=== PATIENT | male | born 1955 | race Caucasian/White ===

== ENCOUNTER 2025-09-29 06:55 | Observation (INO) ==
--- NOTE | 2025-08-25 08:38 | PAT Medication Instructions ---
Medication Instructions Date of Service August 25, 2025 Home Medications atorvastatin 10 mg tablet 10 mg PO QAM Take morning of surgery With a small sip of water, OTHERWISE NOTHING TO EAT OR DRINK AFTER MIDNIGHT: atorvastatin 10 mg tablet 10 mg PO QAM Other Notes If you have any questions please call us at [phone] or [phone] or [phone] or [phone]
--- NOTE | 2025-09-03 09:18 | Anesthesiology Consultation ---
Date of Service September 03, 2025 Assessment & Plan (1) Encounter for pre-operative examination: - awaiting surgeon ordered PCP clearance with Dr. Forte 09/06; if cleared by PCP, patient is acceptable to proceed. - Outpatient joint assessment: Patient is currently scheduled for inpatient pathway. If re-evaluated and patient/surgeon requests outpatient pathway, patient is acceptable candidate for outpatient joint program from anesthesia standpoint pending surgeon's office assessment of pt motivation/support/completion of same day joint program preop requirements. Chart Review Chart Review: Patient seen in Pre Admission Testing Teaching & Discussion Pre-Anesthesia Teaching/Discussion Notes: Instructed NPO after midnight before surgery, except medications with 15 cc of water. Medication instructions provided according to the PAT guidelines. History Surgery Operation Date: 09/29/25 07:00 Proposed Procedures p Left Total Knee Arthroplasty - Micheal Cardenas MD Height/Weight Height: 5 ft 5 in Weight: 79.6 kg Allergies Allergy/AdvReac Type Severity Reaction Status Date / Time Sulfa (Sulfonamide Allergy Hives Verified 08/25/25 07:32 Antibiotics) sulfamethoxazole Allergy Hives Verified 08/25/25 07:32 Medications Home Medications Medication Instructions Recorded Confirmed Last Taken atorvastatin 10 mg tablet 10 mg PO QAM 08/25/25 08/25/25 Unknown Past Medical History Medical History (Updated 09/03/25 @ 09:18 by Millie Ramsey PA-C) History of COVID-19 (~2022) 2022, resolved History of migraine "years ago" HLD (hyperlipidemia) Patient denies h/o stroke, seizures, heart attack, heart failure, DM, HTN, blood clots/DVTs or blood transfusions. Exercise / Class Metabolic Activity II 4-5 Yardwork/Stairs/Walk up hill (denies chest discomfort or shortness of breath walking up one flight of stairs) Past Surgical History Surgical History Hx of appendectomy Hx of colonoscopy Hx of left knee surgery in college Hx of right knee surgery in college Hx of shoulder surgery rt/lt Hx of wisdom tooth extraction Nausea after anesthesia only after appendectomy Past Anesthesia History No Hx of Anesthesia Complications and No Family Hx of Anesthesia Complications History of PONV No Hx of Motion Sickness and History of PONV (with appendectomy) Social History Smoking Status: Never smoker Do You Dip or Chew Tobacco: No Hx Alcohol Use: Yes Alcohol type: hard liquor alcohol intake frequency: 0-2 drinks per day Hx Substance Use: No substance use type: does not use Review of Systems Snoring, denies witnessed apneas or sleep study. Patient denies chest pain, shortness of breath, dyspnea on exertion, reflux, fever, chills, cough, wheezing, or palpitations. Physical Exam Vital Signs Vitals BP 134/87 P 64 TEMP 98 SP02 97% on RA RESP 18 Physical Patient resting comfortably in chair in no acute distress, alert and oriented, responding appropriately throughout visit Full cervical extension range of motion without pain TMD 3.5 finger breadths Mallampati Score 3 Dentition: intact, denies chipped or loose teeth, caps/crowns, implants or bridges Lungs: normal respiratory effort. Good air movement, clear throughout to auscultation, no adventitious breath sounds Cardiac: regular rate and rhythm, no murmurs noted Carotid arteries: negative bruit bilat Lab Results Anesthesia Preop Results Results Anesthesia Widget: WBC 5.34 K/ul (4.8-10.8) 09/03/25 Hgb 14.5 g/dl (14.0-18.0) 09/03/25 Hct 43.9 % (42.0-52.0) 09/03/25 Plt 272 K/uL (130-400) 09/03/25 Na 140 mmol/L (136-145) 09/03/25 K 4.3 mmol/L (3.5-5.1) 09/03/25 Cl 109 mmol/L (98-107) H 09/03/25 CO2 25 mmol/L (21-32) 09/03/25 BUN 21 mg/dl (6-23) 09/03/25 Creat 1.11 mg/dl (0.6-1.4) 09/03/25 Glucose Level 101 mg/dl (70-99(Fasting)) H 09/03/25 PT 10.2 Seconds (9.0-12.0) 09/03/25 PTT 28 Seconds (21-31) 09/03/25 INR 1.0 (0.9-1.1) 09/03/25 Blood Type AB Positive 09/03/25 Antibody Screen NEGATIVE 09/03/25 Testing Electrocardiogram Date: 09/03/25 Sinus bradycardia, rate 55 bpm Chest X-Ray Date: 09/03/25 No acute findings.
--- NOTE | 2025-09-29 05:24 | History & Physical Bridge Note ---
Date of Service September 29, 2025 History & Physical Bridge Note I have examined the patient, reviewed the History & Physical and in the interval since the performance of the History & Physical I have noted the following changes of clinical significance: consent and site verified/reviewed risks of [id number] clots.no changes noted
[~2025-09-29 06:55] MED LIST: BUPIVACAINE 0.25% PF 30 ML VIAL ONE; BUPIVACAINE 0.5 % 5 MG/1 ML PF 10ML VIAL ONE; DEXAMETHASONE SOD INJ 4 MG/ML VIAL ONE
[2025-09-29] MEDS ORDERED: ATROPINE SULFATE 0.1 MG/ML 10ML SYR IV PRN (07:26)
[2025-09-29] MEDS ORDERED: ONDANSETRON INJ 2 MG/ML 2 ML VIAL IV PRN ×2 (07:26→12:22)
[2025-09-29] MEDS ORDERED: PROMETHAZINE HCL 6.25 MG in SODIUM CHLORIDE 0.9% 50 ML IV PRN (07:26)
[2025-09-29] MEDS: LR 60ML/HR IV SCH (07:34)
[2025-09-29] MEDS: LR 500ML BOLUS, THEN 15ML/HR IV SCH (07:52)
[2025-09-29] MEDS ORDERED: MIDAZOLAM HCL 1 MG/ML 2ML VIAL ONE ×2 (08:02→08:16)
[2025-09-29] MEDS: TRANEXAMIC ACID 1,000 MG **IV Pre-op IV SCH (09:13)
[2025-09-29] MEDS: ORTHO JOINT ANESTHETIC ONE (09:58)
[2025-09-29] MEDS: ROPIV 0.5% 246mg, Ketorolac 30mg, EPINEPHrine 0.5mg in NSS INFIL SCH (09:58)
[2025-09-29] MEDS ORDERED: ePHEDrine sulfate 50 MG/5 ML SYR ONE (10:43)
[2025-09-29] MEDS ORDERED: PROPOFOL IV EMULSION 10 MG/ML 100 ML VIAL IV ONE (10:43)
[2025-09-29] MEDS ORDERED: NEOSTIGMINE METHYLSULFATE 1 MG/ML 10ML VIAL ONE (10:43)
--- NOTE | 2025-09-29 10:58 | Post Operative Brief Note ---
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 Postop diagnosis same I identified the patient and participated in the time-out.: Yes Procedure Operation Date: 09/29/25 08:55 <No data on this case meets the specified criteria> Cemented left total knee replacement Surgeon Micheal Cardenas MD Title Supervisor marce no resident or fellow available Estimated Blood Loss 25 Findings Consistent with Post-Op Diagnosis Significant osteoarthritis patellofemoral joint medial compartment. All incisions requiring incorporation of 1 old incision to prevent narrow skin bridge and Fluids 2 L Complications None
--- NOTE | 2025-09-29 11:00 | Orthopedic Progress Note ---
Date of Service September 29, 2025 Orthopedic Progress Note Patient underwent left total knee replacement. Tolerated well. Denies chest pain shortness of breath fever chills nausea vomiting or headache. Vital signs are stable. Wound dressing clean dry and intact neurovascular check limited by spinal. X-ray pending. Significant other contacted.
--- NOTE | 2025-09-29 11:00 | Operative Report ---
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 pre and postop diagnosis same I identified the patient and participated in the time-out.: Yes Procedure Operation Date: 09/29/25 08:55 <No data on this case meets the specified criteria> Cemented left total knee replacement Surgeon Micheal Cardenas MD Organic Extractions Technician Ajit no resident or fellow available Estimated Blood Loss 25 Findings Consistent with Post-Op Diagnosis Grade 4 disease medial and patellofemoral compartment old incisions were requiring appropriate surgical planning for skin incision and exposure Fluids 2 L Specimens Bone pathology Drains None Complications None Indications Severe pain failed conservative management Description of Procedure After the patient was appropriate notified site verified consent verified antibiotics confirmed as being given left lower extremity was prepped and draped usual routine fashion. Tourniquet inflated to 275 mmHg after exsanguination of the limb with a rubber arthrograms for a total of 46 minutes. Total medial and lateral incision the medial incision was incorporated into the present incision and extended proximally and distally. There was no subcutaneous dissection underneath the lateral side of the incision to prevent superficial sloughing over the patella recognized complication of all of his incisions. Medial parapatellar arthrotomy was performed. Patella was able to be everted after releasing some of the infrapatellar contracture synovectomy was completed excellent exposure was obtained. There was marked destruction of the articular cartilage in the medial compartment of the knee and the patellofemoral compartment. Osteophytes resected. There was no cruciate the ACL was absent. PCL was intact after bone exposure was removed through the notch. Distal femur was then entered cruciate remaining PCL then excised and then tibia subluxated remaining meniscal remnants excised laterally. There is nothing medially. Distal femur was then cut 10 mm proximal tibia cut 4 mm the extension gap was excellent both were sized to a size 5. Cutting block was applied the distal femur and the anterior posterior, chamfer cuts made. Taking appropriate appropriate external rotation on the femur. Femur with flexion gap with the tibia was then checked it was excellent. Box cut was then made a size 5 fit well. The tibia was then broached and reamed to a size 5 and with a 5 mm spacer everything looked good. Patella tracked well. The patella was resected leaving 15 mm and a 38 button was seated tracked well. Ortho mix was then injected around the knee the trial elements were removed the wound was irrigated and soaked in Irrisept and then the permanent cemented into position tibia femur patella in that order once that was done after 12 minutes the tourniquet was deflated minor bleeding points controlled electrocautery and the trial liner removed the permanent liner seated after final irrigation and then closed at 40 degrees of flexion with #2 Vicryl 2-0 Vicryl and stainless steel clips. Appropriate dressing was applied the patient transferred to cover in satisfactory condition he tolerated the procedure well. EBL was less than 25 cc crystalloid to the 2000 cc Summary of implants ATT UNE De[employer] knee system size 5 left femur size 5 tibia size 5 x 5 poly rotating platform 38 patella 2 bags of Palacos G cement. Bone pathology pending. Significant other contacted. Initiate anticoagulation tomorrow. I attest to the content of the Intraoperative Record and any orders documented therein. Any exceptions are noted below.
--- NOTE | 2025-09-29 11:02 | Discharge Summary ---
Date of Service September 30, 2025 Admission HPI Per Admitting Provider Osteoarthritis left knee Principal Diagnosis Cemented left total knee replacement Discharge Data Allergies Allergy/AdvReac Type Severity Reaction Status Date / Time Sulfa (Sulfonamide Allergy Intermediate Hives Verified 09/29/25 07:14 Antibiotics) sulfamethoxazole Allergy Intermediate Hives Verified 09/29/25 07:14 Vaccinations None Consultations None Procedures Performed Operation Date: 09/29/25 08:55 <No data on this case meets the specified criteria> Cemented left total knee replacement Ordered Studies 09/29/25 05:00 US - OR guided needle placemen Routine X-rays bone pathology Hospital Course (1) Status post left knee replacement: Total Time Total Time Spent Total Time Spent (In Minutes): 10 Discharge Plan Discharge Items Patient Disposition: Home - Home Health Services Reason For Visit: Left Knee Osteoarthritis Discharge Diagnosis: Left knee s/p total knee replacement Condition on Discharge: Good Activity: Per Instructions section Lifting: Wait until after follow-up appointment Bathing: Keep incision dry Sexual Activity: Wait until after follow-up appointment Exercise/Sports: Wait until after follow-up appointment Driving/Machine Use: No driving until cleared by Dr. Cardenas Weightbearing: Full weightbearing Non-emergency contact: Surgeon Call non-emergency contact if: you have any medication questions, your pain is not controlled, your temperature is above 101, your wound has increased redness, your wound has increased drainage and your wound pain has increased Follow-up/Referrals: Raul Forte MD [Primary Care Provider] - Diet: Regular Addtl Attending Provider Instructions: New Medicine: * You will likely be taking one or more of these medications: 1. Percocet - Take, as directed, when you need it, every four to six hours to control your pain. 2. Iron Sulfate - Take 1x each day for the month after surgery to help you replace the blood lost during surgery. 3. Eliquis - Thins your blood to lessen the chance of forming a blood clot. * The most common side effects of pain medicine and iron are nausea and constip ation. If nausea or constipation is too much of a problem or if you have any questions about your new medicines or doses, call [facility] at . We will try to help you manage these issues. "VERY IMPORTANT TO READ AND REVIEW" Blood Clots and Blood Thinning Medicine: * You are given Eliquis during the immediate post-operative period to lessen the risk of blood clots forming in your legs and/or lungs. It is usually given for six weeks after surgery. Pain: * The immediate post-operative period after knee replacement surgery is often quite painful. * You are given a prescription for pain medicine. You should take it, as directed, when you need it, especially before physical therapy and before going to bed. Pain that interferes with sleep is very common and can last several months. * You will likely need pain medicine for the first four to six weeks. It will not stop all of the pain. The pain will lessen and as you feel better, you may change to milder pain medicine such as Tylenol. * The most common side effects of pain medicine are nausea and constipation, so don't take more than you need. Physical Therapy: * You will have physical therapy two or three times each week for four to six weeks after your surgery in order to regain your knee range of motion and to retrain your knee to work properly. * It is just as important to make sure you are getting your knee perfectly straight as it is to regain your knee bend. * Taking a pain pill an hour before therapy can help you have a more productive and comfortable therapy session if needed. Home Exercise: * You were shown a series of exercises (heel props, heel slides, etc.) in the hospital. Do these exercises three to four times each day including the exercises you were shown in physical therapy. Walking: * Get up and walk several times each day. For the first four weeks, try not to stand or walk for more than one hour at a time. If you do stand or walk for more than one hour, you will not hurt anything, but your knee and leg will likely swell. * As you feel comfortable, you may change from the walker or crutches to a cane and then to independent walking. SELF CARE INSTRUCTIONS AFTER TOTAL KNEE REPLACEMENT A. You may need to continue a physical therapy program after discharge from the hospital. There are several options available to you. Your doctor will assist you in selecting the best one for you. 1. An out-patient facility 2 to 3 times a week for therapy or home therapy. 2. Continue working on all exercises taught to you in the hospital. Your goals should be to increase bending of your knee to 90 degrees and beyond and to fully straighten your knee. B. You may progress at your own pace from walking with a walker or crutches to a cane; then to no assistive devices. C. Make walking a part of your daily routine. Be up as much as comfortable with rest periods throughout the day. Rest with leg elevation is very important. Use the ice wrap frequently for the first 3-4 weeks. D. There are no restrictions on activities. You may ride in a car, shop, participate in academic administrator and all social activities. E. Wear the long elastic stockings (BRITTA hose) 20 hours a day for six weeks after surgery. They can be removed several times a day for laundering and for a shower. F. Do not place a pillow behind your knee when resting. A pillow at your ankle is okay. G. You may return to previous diet. VERY IMPORTANT TO READ AND REVIEW A. Take Eliquis (blood thinning medication) as directed by your doctor. B. There are a few signs you need to watch for after you are home. Call [facility] if you notice any of the followin. Increased severe knee pain. Some pain is expected especially when you exercise. 2. Increased swelling in your leg or knee; pain or swelling of the calf muscle in either lower leg. 3. Any fluid drainage from the incision. 4. Shortness of breath or chest pain. C. Please call [facility] at if you have any concerns or questions about your operation or recovery. The doctor or his nurse will return your call promptly. D. You must take antibiotics before dental work, bladder, bowel or other surgery. Call the office to obtain a prescription at least 2 days prior to your appointment. * CALL IF INCREASED PAIN, REDNESS, DRAINAGE OR FEVER GREATER THAT 101. * Sutures should be removed 12-14 days after surgery unless you are on chronic steroids, then it will be 14-18 days after surgery. Call your doctor if: * Temperature above 101 degrees F. * Pain not relieved by pain medicine ordered. * Increased drainage or redness from incision. * Notify your doctor with any questions or concerns. MEDICATIONS: * Please take your prescriptions as instructed at your pre-op appointment and/or see medication discharge instructions listed above. * If concerns develop, call your physician's office at . SPECIAL CARE INSTRUCTIONS: * Ice/Elevate as instructed. * Keep dressing clean, dry, intact. * Your surgical extremity may be discolored due to prepping agents used on the skin. A bluish-green tint is a normal variant and should not cause alarm. Call your doctor at [phone] if: * Temperature above 101 degrees * Pain not relieved by pain medicine ordered * There is increased drainage or redness from any incision * You have any unanswered questions, problems or concerns. FOLLOW UP VISIT: * If not already scheduled, please call the office at to schedule a follow-up appointment. Pending Studies at Discharge: Yes Studies:: bone pathology Stand-Alone Forms: My [facility], Smoking Cessation Medications and DC Order Prescriptions: No Action atorvastatin 10 mg Tablet 10 mg PO QAM Admission Data Admit Date/Time: 09/29/25 11:13 Attending Provider: Micheal Cardenas Admit Provider: Micheal Cardenas Primary Care Provider: Raul Forte
--- NOTE | 2025-09-29 11:08 | Operative Report ---
Post Operative Report Pre & Post Diagnosis Operation Date: 09/29/25 08:55 Pre-Op Diagnosis: Left Knee Degenerative Joint Disease Post-Op Diagnosis: Left Knee Degenerative Joint Disease I identified the patient and participated in the time-out.: Yes Procedure Operation Date: 09/29/25 08:55 Actual Procedures p Left Total Knee Arthroplasty(Left) - Micheal Cardenas MD Surgeon KOKI Cardenas MD Mechanist [facility] PAC no resident or fellow available Estimated Blood Loss 25 Findings Consistent with Post-Op Diagnosis see operative report Specimens see operative report Drains none Complications none Disposition Accompanied Patient To Recovery: Yes Indications This 70 year old male presented to the office with complaints of persisting left knee pain. He had tried conservative measures, including activity modification, and OTC medications, without lasting relief. He elected to proceed with surgical intervention after being educated on potential risks and outcomes. Preoperative imaging was obtained. Description of Procedure The patient was administered a spinal anesthetic and then taken to the operating room where he was given sedation. He was prepped and draped in the usual sterile fashion. Please see Dr. Cardenas's operative report for specifics of the procedure. I was present for the entire case, from initial patient positioning through final wound closure. Assistance was provided in tissue retraction, hemostasis, trial implant placement, final implant placement, and final wound closure. The patient was taken to the recovery room in satisfactory condition. I attest to the content of the Intraoperative Record and any orders documented therein. Any exceptions are noted below.
--- NOTE | 2025-09-29 11:36 | Anesthesiology Progress Note ---
Date of Service September 29, 2025 Anesthesia Post Procedure Vital Signs Vital Signs: Temp Pulse Pulse Resp BP Pulse Ox O2 Del Method 09/29/25 11:25 36.4 C L 82 18 106/75 97 Room Air 09/29/25 11:15 86 17 132/75 98 Oxymask 09/29/25 11:06 36.3 C L 81 17 127/75 98 Oxymask 09/29/25 07:21 37.1 C 87 18 143/88 H 94 Room Air O2 Flow Rate 09/29/25 11:25 09/29/25 11:15 5 09/29/25 11:06 5 09/29/25 07:21 Pain Intensity Left Knee: Pain Intensity: 4 Transfer of Care Handoff Completed per policy Notes Mental Status: alert / awake / arousable Patient Amnestic to Procedure: Yes Nausea / Vomiting: adequately controlled Pain: adequately controlled Airway Patency, RR, SpO2: stable & adequate BP & HR: stable & adequate Hydration State: stable & adequate Neuraxial Anesthesia: was administered and sensory block is resolving Anesthetic Complications: no major complications apparent and Pt Satisfied with anesthetic care
--- NOTE | 2025-09-29 11:55 | XRay Report ---
XR knee LT 1 or 2V routine HISTORY: 70 years-old Male S/P L TKA left knee arthroplasty COMPARISON: 04/05/2025 TECHNIQUE: 2 views of the left knee FINDINGS: Total arthroplasty and patellar resurfacing. Anterior midline skin renea with expected postoperativ e soft tissue swelling and deep tissue air. No acute fracture, dislocation or unexpected opaque forei gn body. IMPRESSION: Satisfactory alignment of the total joint arthroplasty. ACT 112: Negative or not required by law. The above report was generated using voice recognition software. It may contain grammatical, syntax o r spelling errors. Electronically signed by: Jesse Owen M.D. 09/29/2025 11:53 AM
[2025-09-29] MEDS ORDERED: NALOXONE HCL 0.4 MG/1 ML VIAL/CARP IV PRN (12:22)
[2025-09-29] MEDS ORDERED: HYDROmorphone INJ 0.5 MG/0.5 ML SYR IV PRN (12:22)
[2025-09-29] MEDS ORDERED: TAMSULOSIN HCL 0.4 MG CAP PO PRN (12:22)
[2025-09-29] MEDS ORDERED: diphenhydrAMINE 50 MG/ML VIAL IV PRN (12:22)
[2025-09-29] MEDS ORDERED: MAGNESIUM HYDROXIDE SUSP 30 ML UDC PO PRN (12:22)
[2025-09-29] MEDS ORDERED: ALUMINUM/MAGNESIUM SUSP 30 ML UDC PO PRN (12:22)
[2025-09-29] MEDS ORDERED: METOCLOPRAMIDE HCL INJ 5 MG/ML 2 ML VIAL IV PRN (12:22)
[2025-09-29] MEDS: KETOROLAC TROMETHAMINE 15 MG/ML VIAL IV SCH (12:47)
[2025-09-29] MEDS: SODIUM CHLORIDE 0.9% 1,000 ML IV SCH (12:48)
--- NOTE | 2025-09-29 13:37 | Orthopedic Progress Note ---
Date of Service September 29, 2025 Assessment & Plan Admission and Anticipated Discharge Date Admission Date: September 29, 2025 Orthopedic Progress Note Postop check doing well denies chest pain fever chills nausea vomiting or headache. Vital signs are stable he is afebrile. Neurovascular check reveals femoral sciatic nerve intact can do straight leg raise can do ankle pumps. Wound dressing clean dry and intact. Postop x-rays look excellent. Continue care pathway.
[2025-09-29] MEDS: ACETAMINOPHEN 500 MG TAB PO SCH (14:26)
[2025-09-29] MEDS: ASCORBIC ACID 500 MG TAB PO SCH (17:16)
[2025-09-29] MEDS: FERROUS GLUCONATE 324 MG TAB PO SCH (17:16)
[2025-09-29 19:22] VITALS: RESP 18
[2025-09-29] MEDS: DOCUSATE SODIUM 100 MG CAP PO SCH (20:00)
[2025-09-29] MEDS: SENNA 8.6 MG TAB PO SCH (20:01)
[2025-09-30 06:18] LABS: Hematocrit (blood only) 35.4 % (42.0-52.0); Hemoglobin 11.8 g/dL (14.0-18.0); Mean Corpuscular Hemoglobin 29.7 pg (25.0-34.0); Mean Corpuscular Volume 89.2 fL (80.0-100.0); Platelet Count 237 K/uL (130-400); RDW Standard Deviation 42.2 fL (36.4-46.3); Red Blood Count 3.97 M/uL (4.70-6.10); White Blood Count 12.68 K/ul (4.8-10.8)
[2025-09-30 06:45] LABS: Anion Gap 6.0 (3-11); Blood Urea Nitrogen 13.0 mg/dl (6-23); Calcium 8.3 mg/dl (8.6-10.3); Carbon Dioxide 24.0 mmol/L (21-32); Chloride 108.0 mmol/L (98-107); Creatinine Clr Calc Pharmacy 61.0 ml/min; Glucose 95.0 mg/dl (70-99(Fasting)); Potassium 3.8 mmol/L (3.5-5.1); Sodium 138.0 mmol/L (136-145)
--- NOTE | 2025-09-30 07:32 | Orthopedic Progress Note ---
Date of Service September 30, 2025 Assessment & Plan Admission and Anticipated Discharge Date Admission Date: September 29, 2025 Orthopedic Progress Note Postop day 1 status post left total knee replacement. He is doing well. Neurovascular check from acetic nerve is normal. Wound dressing clean dry and intact. Can do straight leg raise. Ankle pumps are excellent calves nontender. Denies chest pain shortness breath fever chills nausea vomiting headache. Assessment doing well continue care pathway discharge to home after PT OT. Initiate anticoagulation today.
[2025-09-30] MEDS: dexAMETHasone 10 MG in SYRINGE 0 ML IV SCH (07:52)
[2025-09-30 08:38] VITALS: BP 126/79; PULSE 58; TEMP 97.9; O2SAT 95
[2025-09-30] MEDS: ATORVASTATIN 10 MG TAB PO SCH (09:02)
[2025-09-30] MEDS: MULTIVITAMIN TAB PO SCH (09:02)
[2025-09-30] MEDS: APIXABAN 2.5 MG TAB PO SCH (09:02)
--- NOTE | 2025-09-30 09:27 | Orthopedic Progress Note ---
Date of Service September 30, 2025 Assessment & Plan (1) Status post left knee replacement: Plan: The patient was educated regarding today's findings. His knee dressings were changed today by me. He will keep these in place through the weekend. They can be changed on Saturday by home health if needed for soiling. Ice and elevate the knee frequently to reduce pain and swelling. Start his Eliquis 2.5 mg this evening. Prescriptions for Eliquis and Percocet 5/325 mg were sent to his pharmacy. Use the knee immobilizer when out of bed today and tomorrow. It can be discontinued entirely on Saturday morning. This was discussed with him. Call the office tomorrow if he will require additional pain medication before the weekend is over. Use the walker for ambulation. Follow-up in the office as scheduled on 10/14 for staple removal. Call with any other concerns. Admission and Anticipated Discharge Date Admission Date: September 29, 2025 Subjective This 70-year-old male is seen today in his room. He is 1 day status post left total knee arthroplasty. He states he is doing well. He has already finished breakfast. He is in good spirits. He denies any chest pain, shortness of breath, nausea, vomiting, fevers, chills, or sweats. No abdominal pain. His knee pain is tolerable. He has been able to ambulate with his walker. Therapy is ready to start with him. He feels well enough to go home today. No other complaints. Review of Systems Review of Systems: Unchanged from yesterday. Physical Exam Physical Exam: General: Well-developed, well-nourished, elderly male, in no acute distress. Laying in bed. Alert and oriented. Conversive. Skin: Warm and dry with good turgor. No rashes. Postsurgical dressings are in place on the left knee. Upon removal, he has scant dried blood on the most inner dressings. Charissa are in place. Wound edges are well-approximated. No erythema or warmth. Minimal edema. No active bleeding. Musculoskeletal: The patient has full terminal extension. He is able to perform a straight leg raise with ease. Flexion to 45 degrees without difficulty. Intact motor function of the ankle and toes. Neurologic: Gross sensation is intact across the left leg by soft touch. Peripheral pulses are 2+. Results & Data Vital Signs (Past 12 Hours) Vital Signs Temp Pulse Resp BP Pulse Ox O2 Del Method 09/30/25 07:00 36.6 C 58 L 18 126/79 95 Room Air 09/30/25 03:38 36.8 C 61 18 112/68 97 Room Air 09/29/25 23:26 36.3 C L 56 L 18 137/85 94 Room Air Laboratory Results CBC obtained this morning shows a white count of 12.68. H&H of 11.8 and 35.4. Platelets 237,000. PRP obtained this morning shows normal sodium and potassium. Normal CO2. BUN of 13 with creatinine 1.09. Glucose this morning is 95.
== END 2025-09-30 12:45 | disposition home health service (06) ==
LOC: 3E 06:55 → ASU 06:55